=== PATIENT | male | born 1965 | race Caucasian/White ===

== ENCOUNTER 2016-06-25 10:32 | Emergency (ER) | payer OTHER ==
[2016-06-25] MEDS ORDERED: Lidocaine Viscous Sol 2% 15 ml UD Cup ONE (11:10)
[2016-06-25] MEDS ORDERED: Mag-Al Plus 1200 MG/1200 MG/120 MG/30 ML UDCUP ONE (11:10)
[2016-06-25 11:20] LABS: #Basophils 0.1 thou/uL (0.0-0.2); #Eosinphils 0.1 thou/uL (0.0-0.7); #Lymphocytes 2.3 thou/uL (1.20-3.40); #Monocytes 0.7 thou/uL (0.11-0.59); #Neutrophils 6.1 thou/uL (1.40-6.50); %Basophils 1.3 % (0.0-1.0); %Eosinophils 0.9 % (0.0-10.0); %Lymphocytes 24.7 % (21.0-51.0); Hematocrit 47.8 % (42.0-52.0); Mean Platelet Volume 6.9 fL (7.4-10.4); Red Blood Cell (RBC) Count 5.21 mill/uL (4.70-6.10); White Blood Cell (WBC) Count 9.3 thou/uL (4.8-10.8)
[2016-06-25 11:44] LABS: ALT (SGPT) 16 U/L (0-55); AST (SGOT) 12 U/L (5-34); Alkaline Phosphatase 45 U/L (40-150); Anion Gap 13 mmol/L (10-20); BUN (Urea Nitrogen) 11 mg/dL (8.9-20.6); Bilirubin, Total 0.5 mg/dL (0.2-1.2); Calc. Creatinine Clearance 0 mL/min (70-130); Calcium 9.1 mg/dL (7.8-10.44); Carbon Dioxide 27 mmol/L (22-29); Chloride 107 mmol/L (98-107); Estimated GFR-MDRD 75; Globulin 2.8 g/dL (2.4-3.5); Protein, Total 6.9 g/dL (6.0-8.3)
--- NOTE | 2016-06-25 11:45 | RAD ---
CHEST 2 VIEWS: Date: 06/25/16 HISTORY: Chest pain. FINDINGS: No comparison. The cardiac silhouette and pulmonary vasculature are unremarkable. Mediastinum is midline. There is no confluent air space consolidation, pneumothorax, or pleural fluid evident. monitor and storage bin tender leads overlie the chest. IMPRESSION: No active cardiopulmonary abnormalities are demonstrated. POS: [facility]
--- NOTE | 2016-06-25 12:27 | ERRECORD ---
[facility] EMERGENCY RECORD HPI CHEST PAIN (10:54 SHAN) CHIEF COMPLAINT: Patient presents for evaluation of chest pain, Patient presents for evaluation of vague chest pain, epigastric pain, back pain; constant for over a week. getting ready to leave town. constant; no prior episodes. HISTORIAN: History provided by patient, History provided by patient's spouse. QUALITY: Pain is dull in nature. EXACERBATED BY: Patient's condition exacerbated by nothing. RELIEVED BY: Patient's condition relieved by nothing. HEART SCORE: Patients history is Slightly Suspicious (0), Patients ECG is normal (0), Patients age is greater than 45 and less than 65 (1), Patient has no risk factors known (0), Patients Troponin is equal to or less than 1 times the normal limit (0), Total 1. WELLS CRITERIA FOR PE: Total 0. ROS (10:56 SHAN) CONSTITUTIONAL: Negative constitutional review of systems. EYES: Negative eye review of systems. ENT: Negative ears, nose, throat review of systems. CARDIOVASCULAR: Historian reports chest pain. RESPIRATORY: Negative respiratory review of systems. GI: Negative gastrointestinal review of systems. MUSCULOSKELETAL: Negative musculoskeletal review of systems. SKIN: Negative skin review of systems. NEUROLOGIC: Negative neurologic review of systems. NOTES: All systems reviewed, negative except as described above. PAST MEDICAL HISTORY (10:41 MSPE) MEDICAL HISTORY: Notes: seasonal allergies, Tetanus not up to date, Past medical history includes history of hyperlipidemia, high cholesterol. MALE SURGICAL HISTORY: Surgical history of hernia repair, Notes age 17; umbilical. SOCIAL HISTORY: Patient drinks socially, Patient denies drug use, Patient has no smoking history. KNOWN ALLERGIES No Known Drug Allergies CURRENT MEDICATIONS (10:39 MSPE) Flonase: SPRAY, SUSPENSION : Strength - 50 mcg : NASAL Patient Dose: once a day. ZyrTEC: TABLET : Strength - 10 mg : ORAL Patient Dose: 1 tab(s) Oral once a day. Vitamin D3: CAPSULE : Strength - 2,000 unit : ORAL &a-1R&a+25V*p+0X*q9334F*c202B*c15G*c2P*p-0X&a-25V&a+1R Name: Grzegorz Matias : 1965 M51 MedRec: [id number] AcctNum: [id number] Prepared: TueJun 25, 2016 12:37 by Interface Page 1 of 3 pMD [facility] EMERGENCY RECORD Patient Dose: 1 tab(s) Oral once a day. VITAL SIGNS VITAL SIGNS: BP: 152/93, Pulse: 74, Resp: 18, Temp: 98.2 (Oral), Pain: 1, O2 sat: 100 on Room Air, Time: 06/25/2016 10:42. (10:42 MSPE) BP: 137/76, Pulse: 65, Resp: 18, O2 sat: 99 on Room Air, Time: 06/25/2016 11:20. (11:20 MSPE) BP: 120/73, Pulse: 70, Resp: 20, O2 sat: 99 on Room Air, Time: 06/25/2016 11:30. (11:30 MSPE) BP: 121/74, Pulse: 59, Resp: 18, Pain: 1, O2 sat: 100 on RA, Time: 06/25/2016 12:03. (12:03 MSPE) PHYSICAL EXAM (10:56 SHAN) CONSTITUTIONAL: Patient afebrile, Pulse normal, Blood pressure normal, Respiratory rate normal, Normal pulse oximetry, Patient appears non toxic, Patient appears pain free, Patient alert and oriented to person, place and time, Nursing notes reviewed. HEAD: Head exam included findings of head atraumatic, normocephalic. EYES: Eye exam included findings of eyelids normal to inspection, Pupils equally round and reactive to light, Extraocular muscles intact. ENT: Pharynx exam normal, Uvula exam normal, Tonsil exam normal. NECK: Neck exam included findings of normal range of motion, Trachea midline. RESPIRATORY CHEST: Respiratory and chest exam normal. CARDIOVASCULAR: Cardiovascular exam included findings of heart rate regular rate and rhythm, Heart sounds normal. ABDOMEN MALE: Abdominal exam included findings of abdomen nontender, Bowel sounds normal. BACK: Back exam normal. UPPER EXTREMITY: Upper extremity exam included findings of inspection normal, Range of motion normal. NEURO: Neuro exam normal. SKIN: Skin exam normal. MEDICATION ADMINISTRATION SUMMARY Drug Name: GI COCKTAIL- GREEN, Dose Ordered: 40 mL, Route: Oral, Status: Canceled, Time: 10:57 06/25/2016, Drug Name: GI COCKTAIL, Dose Ordered: 40 mL, Route: Oral, Status: Given, Time: 11:20 06/25/2016, Drug Name: Protonix oral, Dose Ordered: 40 mg, Route: Oral, Status: Given, Time: 11:07 06/25/2016, Detailed record available in Medication Service section. PROBLEM LIST No recorded problems DIAGNOSIS (12:19 ILEANA) &a-1R&a+25V*p+0X*f5145T*c202B*c15G*c2P*p-0X&a-25V&a+1R Name: Grzegorz Matias : 1965 M51 MedRec: [id number] AcctNum: [id number] Prepared: TueJun 25, 2016 12:37 by Interface Page 2 of 3 pMD [facility] EMERGENCY RECORD FINAL: PRIMARY: reflux esophagitis. PRESCRIPTION (12: ILEANA) Carafate: TABLET : 1 gram : ORAL : Quantity: 2 Unit: tab(s) Route: ORAL Schedule: Dispense: 120 Unit: tab(s) May substitute. Refills: No Refills . NOTES: 2 tabs chewed twice a day and swallowed 1 hr away from meals and medications No Refills. Protonix oral: TABLET, DELAYED RELEASE (ENTERIC COATED) : 40 mg : ORAL : Quantity: 1 Unit: tab(s) Route: ORAL Schedule: once a day Dispense: 30 Unit: tab(s) May substitute. Refills: No Refills . NOTES: No Refills. DISPOSITION PATIENT: Disposition Type: Discharge, Disposition: *Discharge Home. (12:19 ILEANA) Patient left the department. (12:31 DARCY) Fernando: DARCY=HECTOR Goss, Rosalie TEJEDA=MD Lyndsey, Bonifacio &a-1R&a+25V*p+0X*q0131B*c202B*c15G*c2P*p-0X&a-25V&a+1R Name: Grzegorz Matias : 1965 M51 MedRec: [id number] AcctNum: [id number] Prepared: TueJun 25, 2016 12:37 by Interface Page 3 of 3 pMD MTDD
--- NOTE | 2016-06-25 12:33 | PICIS ---
[facility] EMERGENCY RECORD TRIAGE (10:37 MSPE) TRIAGE NOTES: pressure in chest and back; tingling in arm. SX intermittent for one week. (10:37 MSPE) PATIENT: NAME: rGzegorz Matias, AGE: 51, GENDER: male, : Sun 1965, TIME OF GREET: TueJun 25, 2016 10:33, PREFERRED LANGUAGE: Bahraini, ETHNICITY: Not or , ECODE BILLING MAP: [facility], SSN: [id number], Zip Code: [address], KG WEIGHT: 79.38, PHONE: , , , PERSON ID: [id number], PCP: Sharonda. (10:37 MSPE) COMPLAINT: CHEST PRESSURE,SOB. (10:37 MSPE) ADMISSION: URGENCY: 2 Emergent, ADMISSION SOURCE: Home, TRANSPORT: CAR, BED: ER -02. (10:37 MSPE) IMMUNIZATIONS: Flu vaccine up to date, Tetanus immunization up to date, Pneumococcal vaccine not up to date. (10:41 MSPE) PROVIDERS: TRIAGE NURSE: Rosalie Goss RN. (10:37 MSPE) KNOWN ALLERGIES No Known Drug Allergies CURRENT MEDICATIONS (10:39 MSPE) Flonase: SPRAY, SUSPENSION : Strength - 50 mcg : NASAL Patient Dose: once a day. ZyrTEC: TABLET : Strength - 10 mg : ORAL Patient Dose: 1 tab(s) Oral once a day. Vitamin D3: CAPSULE : Strength - 2,000 unit : ORAL Patient Dose: 1 tab(s) Oral once a day. VITAL SIGNS VITAL SIGNS: BP: 152/93, Pulse: 74, Resp: 18, Temp: 98.2 (Oral), Pain: 1, O2 sat: 100 on Room Air, Time: 06/25/2016 10:42. (10:42 MSPE) BP: 137/76, Pulse: 65, Resp: 18, O2 sat: 99 on Room Air, Time: 06/25/2016 11:20. (11:20 MSPE) BP: 120/73, Pulse: 70, Resp: 20, O2 sat: 99 on Room Air, Time: 06/25/2016 11:30. (11:30 MSPE) BP: 121/74, Pulse: 59, Resp: 18, Pain: 1, O2 sat: 100 on RA, Time: 06/25/2016 12:03. (12:03 MSPE) NURSING ASSESSMENT: CARDIOVASCULAR (10:44 MSPE) CONSTITUTIONAL: Patient arrives ambulatory, Gait steady, History obtained from patient, Patient appears comfortable, Patient cooperative, Patient alert, Oriented to person, place and time, Skin warm, Skin dry, Skin normal in color. PAIN: pressure pain, chest, back, reports intermittent pressure for past one week. CARDIOVASCULAR: Cardiovascular assessment findings include heart rate normal, Heart rhythm normal sinus, Heart sounds normal, &a-1R&a+25V*p+0X*i3564T*c202B*c15G*c2P*p-0X&a-25V&a+1R Name: Grzegorz Matias : 1965 M51 MedRec: [id number] AcctNum: [id number] Prepared: TueJun 25, 2016 12:43 by Interface Page 1 of 9 D [facility] EMERGENCY RECORD Associated with dyspnea, sts feels like " unable to get a good breath". Occurs at rest as well as on exertion. RESPIRATORY/CHEST: Breath sounds clear, Respiratory assessment findings include respiratory effort easy, Respirations regular, Conversing normally, no associated cough noted, no associated fever. NOTES: Notes: denies recent illness. sts has had belching. NURSING PROCEDURE: DISCHARGE NOTE (12:30 MSPE) DISCHARGE: Patient discharged to home, ambulating without assistance, accompanied by //partner, Summary of Care printed/ provided, Discharge instructions given to patient, Discharge instructions given to and , Simple or moderate discharge teaching performed, Prescriptions given and instructions on side effects given, Above person(s) verbalized understanding of discharge instructions and follow-up care, Patient treated and evaluated by physician. BELONGINGS: Belongings remain with patient. NOTES: Notes: Improved and in NAD at time of DC. NURSING PROCEDURE: EKG CHART (10:41 MSPE) EKG: EKG indicated for complaint of chest pain, 12 lead EKG performed on the left chest. FOLLOW-UP: After procedure, EKG for interpretation given to Dr. Solorio. NURSING PROCEDURE: IV IV SITE 1: IV therapy indicated for hydration, IV therapy indicated for medication administration, IV established, to the right antecubital, using a 20 gauge catheter, in one attempt, IV site prepped with Chloraprep, Saline lock established, Flushed with normal saline (mls): 10, Labs drawn at time of placement, labeled in the presence of the patient and sent to lab. (11:02 MSPE) FOLLOW-UP SITE 1: After procedure, 2x2 dressing applied, IV discontinued, due to patient being discharged, catheter intact. (12:25 MSPE) NURSING PROCEDURE: NURSE NOTES (12:03 MSPE) NURSES NOTES: Patient assisted to bathroom with steady gait, Patient in no apparent distress, Patient resting quietly, Beverage given to patient, Patient is awaiting results, Patient is awaiting disposition, Notes: Pt sts no significant change after PO med; still feels slight pressure. VITAL SIGNS: BP: 121, / 74, Pulse: 59, Resp: 18, Pain: 1, O2 sat: 100, on: RA. NURSING PROCEDURE: TRANSPORT TO TESTS TRANSPORT TO TESTS: Patient transported to x-ray, via wheelchair, Accompanied by x-ray research and development technician. (11:12 MSPE) FOLLOW-UP: After procedure, patient returned to emergency &a-1R&a+25V*p+0X*a8513V*c202B*c15G*c2P*p-0X&a-25V&a+1R Name: Grzegorz Matias : 1965 M51 MedRec: [id number] AcctNum: [id number] Prepared: TueJun 25, 2016 12:43 by Interface Page 2 of 9 [facility] EMERGENCY RECORD department. (11:18 MSPE) ORDER DETAILS Order Name: STOCKLAYER ED, Status: Canceled, Time: 10:53 06/25/2016, User: DARCY, - Ordered for: MD Solorio Stanley, - Entered by: MD Solorio Stanley - TueJun 25, 2016 10:52, - Reason for Cancel: duplicate, - Quantity: 1, Order Name: STOCKLAYER ED, Status: Done, Time: 10:47 06/25/2016, User: DARCY, - Ordered for: MD Solorio Stanley, - Entered by: HECTOR Goss, Rosalie Delores Jun 25, 2016 10:46, - Quantity: 1, Order Name: Cardiac Profile w/CKMB & Troponin - I, Status: Active, Time: 10:52 06/25/2016, User: ILEANA, - Ordered for: MD Solorio Stanley, - Entered by: MD Solorio Stanley - Fri Jun 25, 2016 10:52, - Quantity: 1, Order Name: CBC with Differential, Status: Active, Time: 11:08 06/25/2016, User: ILEANA, - Ordered for: MD Solorio Stanley, - Entered by: MD Solorio Stanley - Fri Jun 25, 2016 11:08, - Quantity: 1, Order Name: Comprehensive Metabolic Panel, Status: Active, Time: 10:52 06/25/2016, User: ILEANA, - Ordered for: MD Solorio Stanley, - Entered by: MD Solorio Stanley - Fri Jun 25, 2016 10:52, - Quantity: 1, Order Name: CRP (Inflamatory), Status: Active, Time: 10:59 06/25/2016, User: ILEANA, - Ordered for: MD Solorio Stanley, - Entered by: MD Solorio Stanley - Fri Jun 25, 2016 10:59, - Quantity: 1, Order Name: D-Dimer (Quantitative), Status: Active, Time: 10:52 06/25/2016, User: ILEANA, - Ordered for: MD Solorio Stanley, - Entered by: MD Solorio Stanley - Fri Jun 25, 2016 10:52, - Quantity: 1, Order Name: EKG 12 Lead in Emergency Room, Status: Canceled, Time: 10:53 06/25/2016, User: DARCY, - Ordered for: MD Solorio Stanley, - Entered by: MD Solorio Stanley - Fri Jun 25, 2016 10:52, - Reason for Cancel: duplicate, - Quantity: 1, Order Name: EKG 12 Lead in Emergency Room, Status: Active, Time: 10:46 06/25/2016, User: DARCY, - Ordered for: MD Solorio Stanley, - Entered by: HECTOR Goss Marilyn Delores Jun 25, 2016 10:46, &a-1R&a+25V*p+0X*m8637M*c202B*c15G*c2P*p-0X&a-25V&a+1R Name: Grzegorz Matias : 1965 M51 MedRec: [id number] AcctNum: [id number] Prepared: TueJun 25, 2016 12:43 by Interface Page 3 of 9 pMD [facility] EMERGENCY RECORD - Quantity: 1, Order Name: ERRT Pulse Oximeter ER, Status: Active, Time: 10:52 06/25/2016, User: DARCY, - Ordered for: MD Solorio Stanley, - Entered by: HECTOR Goss Marilyn - Delores Jun 25, 2016 10:52, - Quantity: 1, Order Name: h. pylori IgG and IgM, Status: Done, Time: 11:21 06/25/2016, User: DARCY, - Ordered for: MD Solorio Stanley, - Entered by: MD Solorio Stanley - Delores Jun 25, 2016 10:59, - Quantity: 1, Order Name: H.pylori IgG, IgM & IgA ABS, Status: Active, Time: 11:06 06/25/2016, User: ILEANA, - Ordered for: MD Solorio Stanley, - Entered by: MD Solorio Stanley - Fri Jun 25, 2016 11:06, - Quantity: 1, Order Name: XR Chest Pa & Lat STANDARD, Status: Active, Time: 10:52 06/25/2016, User: ILEANA, - Ordered for: MD Solorio Stanley, - Entered by: MD Solorio Stanley - Delores Jun 25, 2016 10:52, - Quantity: 1. MEDICATION ADMINISTRATION SUMMARY Drug Name: GI COCKTAIL- GREEN, Dose Ordered: 40 mL, Route: Oral, Status: Canceled, Time: 10:57 06/25/2016, Drug Name: GI COCKTAIL, Dose Ordered: 40 mL, Route: Oral, Status: Given, Time: 11:20 06/25/2016, Drug Name: Protonix oral, Dose Ordered: 40 mg, Route: Oral, Status: Given, Time: 11:07 06/25/2016, Detailed record available in Medication Service section. MEDICATION SERVICE GI COCKTAIL: Order: GI COCKTAIL - Dose: 40 mL : Oral Lidocaine Viscous (lidocaine HCl) [10 mL] MAG-AL (magnesium hydroxide/aluminum hydroxide) [30 mL] Schedule: Now Ordered by: Bonifacio Solorio MD Entered by: Bonifacio Solorio MD TueJun 25, 2016 10:58 , Acknowledged by: Rosalie Goss RN TueJun 25, 2016 11:09 Documented as given by: Rosalie Goss RN TueJun 25, 2016 11:20 Patient, Medication, Dose, Route and Time verified prior to administration. Site: Medication administered P.O., Patient appears Awake and alert- acceptable, Correct patient, time, route, dose and medication confirmed prior to administration, Patient advised of actions and side-effects prior to administration, Allergies confirmed and medications reviewed prior to administration, Patient in position of comfort, Side rails up, Cart in lowest position, Family at bedside. Protonix oral: Order: Protonix oral (pantoprazole sodium) - &a-1R&a+25V*p+0X*o8223T*c202B*c15G*c2P*p-0X&a-25V&a+1R Name: Grzegorz Matias : 1965 M51 MedRec: [id number] AcctNum: [id number] Prepared: TueJun 25, 2016 12:43 by Interface Page 4 of 9 pMD [facility] EMERGENCY RECORD Dose: 40 mg : Oral Schedule: Now Ordered by: Bonifacio Solorio MD Entered by: Bonifacio Solorio MD TueJun 25, 2016 10:54 , Acknowledged by: Barbara Francis TueJun 25, 2016 11:03 Documented as given by: Barbara Francis TueJun 25, 2016 11:07 Patient, Medication, Dose, Route and Time verified prior to administration. Amount given: 1 TAB, Site: Medication administered P.O., Patient appears Awake and alert- acceptable, Correct patient, time, route, dose and medication confirmed prior to administration, Patient advised of actions and side-effects prior to administration, Allergies confirmed and medications reviewed prior to administration, Patient in position of comfort, Side rails up, Cart in lowest position, Family at bedside, Call light in reach. (CANCELED) GI COCKTAIL- GREEN: Order: GI COCKTAIL- GREEN - Dose: 40 mL : Oral (phenobarbital/hyoscyamine sulfate/atropine sulfate/scopolamine hydrobromide) [10 mL] Lidocaine Viscous (lidocaine HCl) [10 mL] MAG-AL (magnesium hydroxide/aluminum hydroxide) [20 mL] Schedule: Now Ordered by: Bonifacio Solorio MD Entered by: Bonifacio Solorio MD TueJun 25, 2016 10:53 Canceled by: Bonifacio Solorio MD. TueJun 25, 2016 10:57 Cancel reason: Change in medication plan. HPI CHEST PAIN (10:54 SHAN) CHIEF COMPLAINT: Patient presents for evaluation of chest pain, Patient presents for evaluation of vague chest pain, epigastric pain, back pain; constant for over a week. getting ready to leave town. constant; no prior episodes. HISTORIAN: History provided by patient, History provided by patient's spouse. QUALITY: Pain is dull in nature. EXACERBATED BY: Patient's condition exacerbated by nothing. RELIEVED BY: Patient's condition relieved by nothing. HEART SCORE: Patients history is Slightly Suspicious (0), Patients ECG is normal (0), Patients age is greater than 45 and less than 65 (1), Patient has no risk factors known (0), Patients Troponin is equal to or less than 1 times the normal limit (0), Total 1. WELLS CRITERIA FOR PE: Total 0. ROS (10:56 SHAN) CONSTITUTIONAL: Negative constitutional review of systems. EYES: Negative eye review of systems. ENT: Negative ears, nose, throat review of systems. CARDIOVASCULAR: Historian reports chest pain. RESPIRATORY: Negative respiratory review of systems. &a-1R&a+25V*p+0X*a9471I*c202B*c15G*c2P*p-0X&a-25V&a+1R Name: Grzegorz Matias : 1965 M51 MedRec: [id number] AcctNum: [id number] Prepared: TueJun 25, 2016 12:43 by Interface Page 5 of 9 pMD [facility] EMERGENCY RECORD GI: Negative gastrointestinal review of systems. MUSCULOSKELETAL: Negative musculoskeletal review of systems. SKIN: Negative skin review of systems. NEUROLOGIC: Negative neurologic review of systems. NOTES: All systems reviewed, negative except as described above. PAST MEDICAL HISTORY (10:41 MSPE) MEDICAL HISTORY: Notes: seasonal allergies, Tetanus not up to date, Past medical history includes history of hyperlipidemia, high cholesterol. MALE SURGICAL HISTORY: Surgical history of hernia repair, Notes age 17; umbilical. SOCIAL HISTORY: Patient drinks socially, Patient denies drug use, Patient has no smoking history. PHYSICAL EXAM (10:56 SHAN) CONSTITUTIONAL: Patient afebrile, Pulse normal, Blood pressure normal, Respiratory rate normal, Normal pulse oximetry, Patient appears non toxic, Patient appears pain free, Patient alert and oriented to person, place and time, Nursing notes reviewed. HEAD: Head exam included findings of head atraumatic, normocephalic. EYES: Eye exam included findings of eyelids normal to inspection, Pupils equally round and reactive to light, Extraocular muscles intact. ENT: Pharynx exam normal, Uvula exam normal, Tonsil exam normal. NECK: Neck exam included findings of normal range of motion, Trachea midline. RESPIRATORY CHEST: Respiratory and chest exam normal. CARDIOVASCULAR: Cardiovascular exam included findings of heart rate regular rate and rhythm, Heart sounds normal. ABDOMEN MALE: Abdominal exam included findings of abdomen nontender, Bowel sounds normal. BACK: Back exam normal. UPPER EXTREMITY: Upper extremity exam included findings of inspection normal, Range of motion normal. NEURO: Neuro exam normal. SKIN: Skin exam normal. EVENTS TRANSFER: Triage to Emergency Emergency Room -02. (10:37 MSPE) Removed from Emergency Emergency Room -02. (12:31 MSPE) PROBLEM LIST No recorded problems DIAGNOSIS (12:19 SHAN) FINAL: PRIMARY: reflux esophagitis. DISPOSITION &a-1R&a+25V*p+0X*c6613N*c202B*c15G*c2P*p-0X&a-25V&a+1R Name: Grzegorz Matias : 1965 M51 MedRec: [id number] AcctNum: [id number] Prepared: TueJun 25, 2016 12:43 by Interface Page 6 of 9 D [facility] EMERGENCY RECORD PATIENT: Disposition Type: Discharge, Disposition: *Discharge Home. (12:19 SHAN) Patient left the department. (12:31 MSPE) INSTRUCTION (12:23 SHAN) DISCHARGE: ESOPHAGEAL REFLUX (ADULT), ESOPHAGITIS REFLUX ADULT. SPECIAL: 1. Carafate 2 twice a day on empty stomach; 1 hr away from meals and meds; preferably chewed 2. protonix 40 mg tab; one daily 3. return if symptoms worsen 4. followup with regular provider soon; consider adding a treadmill also for further reassurance. PRESCRIPTION (12:21 [facility]) Carafate: TABLET : 1 gram : ORAL : Quantity: 2 Unit: tab(s) Route: ORAL Schedule: Dispense: 120 Unit: tab(s) May substitute. Refills: No Refills . NOTES: 2 tabs chewed twice a day and swallowed 1 hr away from meals and medications No Refills. Protonix oral: TABLET, DELAYED RELEASE (ENTERIC COATED) : 40 mg : ORAL : Quantity: 1 Unit: tab(s) Route: ORAL Schedule: once a day Dispense: 30 Unit: tab(s) May substitute. Refills: No Refills . NOTES: No Refills. IMAGING *EKG: Image captured from scanner. (11:22 MSPE) *DISCHARGE INSTRUCTIONS RECEIPT: Image captured from scanner. (12:30 MSPE) *SUPPLY CHARGE SHEET: Image captured from scanner. (12:30 MSPE) ADMIN (12:23 [facility]) DIGITAL SIGNATURE: MD Solorio Stanley. RESULTS (12:22 MSPE) RADIOLOGY: XR Chest Pa & Lat STANDARD Observe DT: TueJun 25, 2016 10:54, CXR2 CHEST 2 VIEWS: Date: 06/25/16 HISTORY: Chest pain. FINDINGS: No comparison. &a-1R&a+25V*p+0X*v1718H*c202B*c15G*c2P*p-0X&a-25V&a+1R Name: Grzegorz Matias : 1965 M51 MedRec: [id number] AcctNum: [id number] Prepared: TueJun 25, 2016 12:43 by Interface Page 7 of 9 pMD [facility] EMERGENCY RECORD The cardiac silhouette and pulmonary vasculature are unremarkable. Mediastinum is midline. There is no confluent air space consolidation, pneumothorax, or pleural fluid evident. air sampling and monitoring leads overlie the chest. IMPRESSION: No active cardiopulmonary abnormalities are demonstrated. POS: [facility] . LABORATORY: D-Dimer (Quantitative) Collection DT: TueJun 25, 2016 11:11, *D-Dimer Test Less than 0.27 - L *mcg/mL, Range (0.27-0.43), * Reference Range Units: mcg/mL of fibrinogen equivalent, units(FEU) Based upon a retrospective study of [facility] patients in October 2005, a result of Less than 0.44 mcg/mL FEU is, predictive of the absence of a DVT or PE. . CBC with Differential Collection DT: TueJun 25, 2016 11:52, White Blood Cell (WBC) Count 9.3 thou/uL, Range (4.8-10.8), Red Blood Cell (RBC) Count 5.21 mill/uL, Range (4.70-6.10), Hemoglobin 15.7 g/dL, Range (14.0-18.0), Hematocrit 47.8 %, Range (42.0-52.0), Mean Corpuscular Volume 91.7 fl, Range (80.0-94.0), Mean Corpuscular Hemoglobin 30.1 pg, Range (27.0-31.0), Mean Corpuscular HGB CONC 32.8 g/dL, Range (32.0-36.0), RBC Distribution Width 11.7 %, Range (11.5-14.5), Platelet Count 323 thou/uL, Range (130-400), *Mean Platelet Volume 6.9 - L fL, Range (7.4-10.4), %Neutrophils 66.0 %, Range (42.0-75.0), %Lymphocytes 24.7 %, Range (21.0-51.0), %Monocytes 7.0 %, Range (0.0-10.0), %Eosinophils 0.9 %, Range (0.0-10.0), *%Basophils 1.3 - H %, Range (0.0-1.0), #Neutrophils 6.1 thou/uL, Range (1.40-6.50), #Lymphocytes 2.3 thou/uL, Range (1.20-3.40), *#Monocytes 0.7 - H thou/uL, Range (0.11-0.59), #Eosinphils 0.1 thou/uL, Range (0.0-0.7), #Basophils 0.1 thou/uL, Range (0.0-0.2). CRP (Inflammatory) Collection DT: TueJun 25, 2016 11:11, CRP (Inflammatory) Less than 0.50 mg/dL, Range (= or < 0.5). Comprehensive Metabolic Panel Collection DT: TueJun 25, 2016 11:11, Sodium 143 mmol/L, Range (136-145), Potassium 3.8 mmol/L, Range (3.5-5.1), Chloride 107 mmol/L, Range (98-107), Carbon Dioxide 27 mmol/L, Range (22-29), &a-1R&a+25V*p+0X*r6169C*c202B*c15G*c2P*p-0X&a-25V&a+1R Name: Grzegorz Matias Ruthie : 1965 M51 MedRec: [id number] AcctNum: [id number] Prepared: TueJun 25, 2016 12:43 by Interface Page 8 of 9 pMD [facility] EMERGENCY RECORD Anion Gap 13 mmol/L, Range (10-20), BUN (Urea Nitrogen) 11 mg/dL, Range (8.9-20.6), Creatinine 1.05 mg/dL, Range (0.7-1.3), Estimated GFR-MDRD 75 , Reference Range for Estimated GFR: Greater than 90, mL/min/1.73 m2 NOTE: The MDRD equation has not been validated for use, with the elderly (over 70 years of age), women, patients with, serious comorbid condition or persons with extremes of body size, muscle, mass, or nutritional status. , Glucose 93 mg/dL, Range (70-105), Calcium 9.1 mg/dL, Range (7.8-10.44), Bilirubin, Total 0.5 mg/dL, Range (0.2-1.2), Protein, Total 6.9 g/dL, Range (6.0-8.3), NOTE: Plasma values are generally 0.3 to 0.5 g/dL higher than serum values, due to the presence of fibrinogen. , Albumin 4.1 g/dL, Range (3.5-5.0), Globulin 2.8 g/dL, Range (2.4-3.5), Alb/Glob Ratio 1.5 g/dL, Range (1.2-2.2), Alkaline Phosphatase 45 U/L, Range (40-150), AST (SGOT) 12 U/L, Range (5-34), ALT (SGPT) 16 U/L, Range (0-55). Cardiac Profile w/CKMB & TropI Collection DT: TueJun 25, 2016 11:11, CKMB 1.1 ng/mL, Range (0-6.6), Troponin I 0.010 ng/mL, Range (< 0.028), Reference Range , 0.00 - 0.028 ng/mL Negative 0.029 - 0.29 ng/mL , Indeterminate Greater or Equal to 0.3 ng/mL Strongly suggests [place] , . Fernando: DARCY=HECTOR Goss, Rosalie TEJEDA=MD Lyndsey, Bonifacio &a-1R&a+25V*p+0X*l1826Z*c202B*c15G*c2P*p-0X&a-25V&a+1R Name: Grzegorz Matias : 1965 M51 MedRec: [id number] AcctNum: [id number] Prepared: TueJun 25, 2016 12:43 by Interface Page 9 of 9 pMD [facility]
== END 2016-06-25 12:30 | disposition home or self-care (01) ==
LOC: NAV ERS 10:32
DX: K21.9 Gastro-esophageal reflux disease without esophagitis (principal); E78.5 Hyperlipidemia, unspecified; E78.00 Pure hypercholesterolemia, unspecified
CPT/HCPCS: 71020; 80053; 82553; 84484; 85025; 85379; 86140; 93005; 94760